=== PATIENT | female | born 1950 | race Caucasian/White ===

== ENCOUNTER 2016-05-08 17:14 | Emergency (ER) | payer BC, OTHER ==
[~2016-05-08] VITALS: Ht 157.5 cm; Wt 71.2 kg
--- OUTSIDE RECORDS SUMMARY | 2016-05-08 17:18 | XMS REPORT | Summary of Care ---
Author Author Breonna Melchor APRN Organization Unknown Address [address] [place], [place] [id number] Phone Unavailable Care Team Providers Care Shoe Turner Name Role Phone January Srinivasan PP Unavailable Unavailable Unavailable Functional Status Functional Status Health Issues Name Dates Details Functional status health issues are not documented Status: Cognitive Status Health Issues Name Dates Details Cognitive status health issues are not documented Status: Problems Name Dates Details Bone Pain In The Foot Status: Active Pain of right foot (729.5, M79.671) Status: Active Diabetes mellitus (250.00, E11.9) Status: Active 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, 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, 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 Presbyopia (367.4, H52.4) Status: Active Routine history and physical examination of adult (V70.0, Z00.00) Status: Active Nephrolithiasis (592.0, N20.0) Status: Active Renal cyst (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, 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) Status: Active Right elbow tendinitis (727.09, M77.8) Status: Active Acute bronchitis (466.0, J20.9) Status: Active Lesion of lower eyelid (374.9, H02.9) Status: Active Medications Name Dates Details No Reported Medications Refills: 0 Active Allergies and Adverse Reactions Name Dates Details No Known Drug Allergies Status: Active Procedures Procedure Dates Details History of Shoulder Arthroscopy With Rotator Cuff Repair History of Total Abdominal Hysterectomy With Removal Of Both Ovaries History of Salpingo-oophorectomy Bilateral Procedures not documented Immunization Name Dates Details Tdap (Adacel) Lot #: [id number] Administered on:Jun-2013 Family History Unknown Family Member Name Dates Details Family history of Composition Of Household ___ Sisters Comments: Family History Status: Active Family history of Family Health Status Comments: Family History Status: Active Grandmother Name Dates Details Family history of Diabetes Mellitus (V18.0) Status: Active Mother Name Dates Details Family history of Hypertension (V17.49) Status: Active Family history of Hyperlipidemia Status: Active Family history of Alzheimer Disease Status: Active Father Name Dates Details Family history of Cerebral Vasculitis Status: Active Grandfather Name Dates Details Family history of Bone Cancer Status: Active Family history of Family Health Status Status: Active Social History Name Dates Details Smoking StatusNever smoker Vital Signs Date Test Result Details 28-Oct-2014 14:50 BP Systolic 145 mm[Hg] Status: BP Diastolic 80 mm[Hg] Status: Temperature 98.1 f Status: Heart Rate 84 /min Status: O2 SAT 97 % Status: Results Date Description Value Details Results not documented Plan of Care Planned Observations Name Dates Details Planned Goals not documented Goal Instructions Instructions not documented Encounters Appointment; Breonna Melchor Encounter Diagnosis: Problem not documented On 28-Oct-2014 14:15 Appointment; Kameron Gutierrez Encounter Diagnosis: Problem not documented On 16-Sep-2014 11:45 Appointment; Sharron Muhammad Encounter Diagnosis: Problem not documented On 14-Mar-2014 08:20 Appointment; Breonna Melchor Encounter Diagnosis: Problem not documented On 06-Mar-2014 14:05 Appointment; Kameron Gutierrez Encounter Diagnosis: Problem not documented On 10-Sep-2013 10:45 Appointment; Elias Cunningham Encounter Diagnosis: Problem not documented On 10-Jun-2013 10:45 Appointment; Amita Meyers Encounter Diagnosis: Problem not documented On 19-Mar-2013 10:15 Appointment; Rock Srinivasan Encounter Diagnosis: Problem not documented On 12-Mar-2013 09:15 Appointment; Amita Meyers Encounter Diagnosis: Problem not documented On 09-Jan-2013 09:15 Appointment; Kameron Gutierrez Encounter Diagnosis: Problem not documented On 02-Jan-2013 08:00 Appointment; Amita Meyers Encounter Diagnosis: Problem not documented On 13-Dec-2012 13:30 Appointment; Rock Srinivasan Encounter Diagnosis: Problem not documented On 05-Dec-2012 13:15 Appointment; Rock Srinivasan Encounter Diagnosis: Problem not documented On 30-Oct-2012 09:00
[2016-05-08] MEDS ORDERED: TRIAMCINOLONE 0.1% TOP ONE (18:35)
--- NOTE | 2016-05-08 19:25 | NUR ---
MARLEN NOT AVAILABLE PER COST ESTIMATOR DR SHERMAN CHANGED SCRIPT
[2016-05-08 19:34] VITALS: BP 148/85
== END 2016-05-08 19:35 | disposition home or self-care (01) ==
LOC: ED 17:16
DX: L25.9 Unspecified contact dermatitis, unspecified cause (principal)
CPT/HCPCS: 99282; 99283